=== PATIENT | female | born 1975 ===

== ENCOUNTER 2025-07-31 08:00 | Day surgery (SDC) | payer OTHER ==
[2025-07-22 10:48] VITALS: BP 101/70
[2025-07-22 11:00] LABS: BASO % 1.0 % (0.1-1.2); EOS # 0.13 (0.04-0.54); EOS % 3.4 % (0.7-7.0); LYMPH # 1.44 (1.18-3.74); LYMPH % 37.1 % (19.3-53.1); MEAN PLATELET VOLUME 9.10 fl (9.4-12.4); MONO # 0.32 (0.24-0.82); MONO % 8.2 % (4.7-12.5); NEUT # 1.94 (1.56-6.13); NEUT % 50.0 % (34.0-71.1); RED CELL DISTRIBUTION WIDTH 12.1 % (11.6-14.4); URINE APPEARANCE Clear; URINE BILIRRUBIN Negative (NEGATIVE); URINE BLOOD Negative; URINE COLOR Yellow; URINE GLUCOSE Negative (NEGATIVE); URINE KETONE Negative (NEGATIVE); URINE LEUKOCYTE Negative; URINE NITRATE Negative; URINE PROTEIN Negative (NEGATIVE); URINE UROBILINOGEN 0.2 E.U./dl
[2025-07-22 11:02] LABS: URINE EPITHELIAL CELLS 6.2 uL (0.0-38.8); URINE RBC 19.6 uL (0.0-20.8)
[2025-07-22 11:10] LABS: URINE BACTERIA 0 uL (0.0-1933); URINE CAST 0.14 uL (0.0-1.40); URINE WBC 1.5 uL (0.0-23.2)
[2025-07-22 11:23] LABS: INR 0.98
[2025-07-22 11:33] LABS: ALT/SGPT 32.0 U/L (12-78); AST/SGOT 14.0 U/L (15-37); BILIRUBIN TOTAL 0.37 mg/dL (0.3-1.2); BUN CREA RATIO 23.0 (7.0-25.0); CREATININE SERUM 0.71 mg/dL (0.55-1.02); GFR 87.86; GLOBULINA 3.3 G/DL (2.4-3.5); GLUCOSE FASTING 86.0 mg/dL (65-100); OSMOLALITY SERUM 287.0 MOSM/KG (275-295)
[~2025-07-31] VITALS: Ht 162.6 cm; Wt 68.0 kg
[~2025-07-31 08:00] MED LIST: SYNTHROID75 MCG PO
[2025-07-31] MEDS ORDERED: CEFTRIAXONE SODIUM 2,000 MG VIAL ONE (09:01)
[2025-07-31] MEDS ORDERED: METRONIDAZOLE/SODIUM CHLORIDE 500 MG/100 ML PIGGYBACK IV ONE (09:01)
[2025-07-31] MEDS ORDERED: TRAM1TAB98 PO (09:59)
[2025-07-31] MEDS ORDERED: COLACE100 MG PO (09:59)
[2025-07-31] MEDS ORDERED: NEURONTIN300 MG PO (09:59)
== END 2025-07-31 14:20 | disposition home or self-care (01) ==
LOC: CIR.AMB 08:00
PROVIDERS: ATTEND Surgery
DX: D12.9 Benign neoplasm of anus and anal canal (principal); K62.89 Other specified diseases of anus and rectum; K64.4 Residual hemorrhoidal skin tags